=== PATIENT | male | born 1940 | race African-American/Black ===

== ENCOUNTER 2022-02-27 18:50 | Inpatient (IN) | payer BC, MEDICARE ==
[~2022-02-27] VITALS: Ht 172.7 cm; Wt 104.8 kg
[2022-02-27] MEDS ORDERED: ACETAMINOPHEN 325MG TABLET PO STA (19:34)
[2022-02-27] MEDS ORDERED: SODIUM CHLORIDE 0.9% 500 ML IV ONE (19:45)
[2022-02-27] MEDS ORDERED: ALBUTEROL (0.083%) 2.5MG/3ML NEB HHN NR (20:00)
[2022-02-27 20:18] LABS: HEMATOCRIT. 44.3 % (42.0-52.0); HEMOGLOBIN. 14.8 g/dL (14.0-18.0); MEAN CORPUSCULAR HEMOGLOBIN 30.6 pg (28.0-32.0); MEAN CORPUSCULAR VOLUME 91.5 fL (80.0-94.0); MEAN PLATELET VOLUME 8.1 fl (7.4-10.4); PLATELET 164 x1000/uL (130-400); RED BLOOD CELL COUNT 4.84 mill/uL (4.7-6.1); RED CELL DISTRIBUTION WIDTH 13.9 % (11.6-14.6)
[2022-02-27 20:20] LABS: CHLORIDE 102 mEq/L (98-107)
[2022-02-27 20:23] LABS: PROTHROMBIN TIME 11.1 sec (9.6-11.0)
[2022-02-27 20:32] LABS: ETHANOL BLOOD < 10 mg/dL
[2022-02-27] MEDS ORDERED: VANCOMYCIN 1G PREMIX 200 ML IV SCH (20:45)
[2022-02-27] MEDS ORDERED: ASPIRIN 325MG EC TABLET PO ONE (20:45)
[2022-02-27] MEDS ORDERED: PIPERACILLIN/TAZ 3.375G PREMIX 50 ML IV ONE (20:45)
[2022-02-27] MEDS ORDERED: SODIUM CHLORIDE 0.9% 1,000 ML IV ONE (21:00)
[2022-02-27] MEDS ORDERED: ENOXAPARIN 100MG/ML SYR SUBCUT NR (21:00)
[2022-02-27 21:23] LABS: PLATELET ESTIMATE NORMAL
[2022-02-27 22:58] LABS: CLARITY URINE CLOUDY (CLEAR); COLOR URINE DARK YELLOW (YELLOW); KETONES URINE 1+ (NEGATIVE); LEUKOCYTE ESTERASE URINE NEGATIVE (NEGATIVE); NITRITE URINE NEGATIVE (NEGATIVE); OCCULT BLOOD URINE NEGATIVE (NEGATIVE); PROTEIN URINE TRACE (NEGATIVE); SPECIFIC GRAVITY URINE 1.039 (1.005-1.030)
[2022-02-27] MEDS ORDERED: DEXAMETHASONE 10 MG/ML VIAL IV ONE (23:15)
[2022-02-27 23:18] LABS: *AMPHETAMINES SCREEN URINE NEGATIVE (NEGATIVE); *BARBITURATES SCREEN URINE NEGATIVE (NEGATIVE); *BENZODIAZEPINES SCREEN URINE NEGATIVE (NEGATIVE); *COCAINE SCREEN URINE NEGATIVE (NEGATIVE); CANNABINOID URINE SCREEN NEGATIVE (NEGATIVE); METHADONE URINE SCREEN NEGATIVE (NEGATIVE); OPIATES URINE SCREEN NEGATIVE (NEGATIVE); PHENCYCLIDINE URINE SCREEN NEGATIVE (NEGATIVE)
[2022-02-28] VITALS (7 sets, daily range): BP systolic 113–165; BP diastolic 67–93
[2022-02-28] MEDS: PIPERACILLIN/TAZOBACTAM 3.375G in DEXT 5% WATER 50ML IV SCH ×3 (05:39→23:04)
[2022-02-28 06:30] LABS: CHLORIDE 109 mEq/L (98-107)
[2022-02-28 06:38] LABS: HEMATOCRIT. 40.6 % (42.0-52.0); HEMOGLOBIN. 13.7 g/dL (14.0-18.0); LYMPHOCYTES % 10.6 % (20.0-50.0); MEAN PLATELET VOLUME 8.1 fl (7.4-10.4); MONOCYTES % 7.2 % (2.0-8.0); NEUTROPHILS % 82.2 % (40.0-76.0); PLATELET 158 x1000/uL (130-400); RED BLOOD CELL COUNT 4.41 mill/uL (4.7-6.1); RED CELL DISTRIBUTION WIDTH 14.1 % (11.6-14.6)
[2022-02-28] MEDS ORDERED: PIPERACILLIN/TAZOBACTAM 3.375 G in DEXTROSE 5% WATER 50 ML IV SCH (09:00)
[2022-02-28] MEDS ORDERED: ACETAMINOPHEN 325MG TABLET PO PRN (10:15)
[2022-02-28] MEDS ORDERED: IPRATROPIUM/ALBUTEROL 0.5-3(2.5)MG/3ML NEB HHN PRN (10:15)
[2022-02-28] MEDS ORDERED: DIPHENHYDRAMINE 50MG/ML VIAL IV PRN (10:15)
[2022-02-28] MEDS ORDERED: ONDANSETRON HCL 4MG/2ML INJ IV PRN (10:15)
[2022-02-28] MEDS ORDERED: MORPHINE SULFATE 2 MG/ML CPJ (NOT FOR IM USE) IV PRN (10:15)
[2022-02-28] MEDS ORDERED: NALOXONE HCL 0.4MG/ML VIAL IV PRN (10:30)
[2022-02-28] MEDS ORDERED: VANCOMYCIN 1GM PMX (XELLIA) 200 ML IV SCH (15:00)
[2022-02-28] MEDS: VANCOMYCIN 1G PREMIX 200 ML IV SCH (17:11)
[2022-02-28] MEDS: CLONIDINE 0.1MG TABLET PO PRN (17:35)
[2022-03-01] VITALS: BP 157/72
[2022-03-01 04:00] VITALS: BP 141/69
[2022-03-01] MEDS: PIPERACILLIN/TAZOBACTAM 3.375G in DEXT 5% WATER 50ML IV SCH ×3 (06:21→21:23)
[2022-03-01 07:30] LABS: BASOPHILS % 0.2 % (0.0-2.0); EOSINOPHILS % 0.3 % (0.0-5.0); HEMATOCRIT. 40.1 % (42.0-52.0); HEMOGLOBIN. 13.7 g/dL (14.0-18.0); LYMPHOCYTES % 28.3 % (20.0-50.0); MEAN CORPUSCULAR HEMOGLOBIN 31.3 pg (28.0-32.0); MEAN CORPUSCULAR VOLUME 91.8 fL (80.0-94.0); MEAN PLATELET VOLUME 8.6 fl (7.4-10.4); MONOCYTES % 13.2 % (2.0-8.0); PLATELET 147 x1000/uL (130-400); RED BLOOD CELL COUNT 4.37 mill/uL (4.7-6.1); RED CELL DISTRIBUTION WIDTH 13.8 % (11.6-14.6)
[2022-03-01 07:54] LABS: CHLORIDE 105 mEq/L (98-107)
[2022-03-01 08:00] VITALS: BP 173/73
[2022-03-01] MEDS: CLONIDINE 0.1MG TABLET PO PRN (10:01)
[2022-03-01] MEDS ORDERED: ENZA40CA PO (10:56)
[2022-03-01] MEDS ORDERED: AMLO5TAB88 PO (10:56)
[2022-03-01] MEDS ORDERED: HYDR25TA PO (10:56)
[2022-03-01 12:00] VITALS: BP 148/55
[2022-03-01] MEDS: VANCOMYCIN 1G PREMIX 200 ML IV SCH (13:30)
[2022-03-01 16:00] VITALS: BP 154/85
[2022-03-01] MEDS: AMLODIPINE 5MG TABLET PO SCH (16:49)
[2022-03-01] MEDS: HYDROCHLOROTHIAZIDE 25MG TABLET PO SCH (16:50)
[2022-03-01] MEDS ORDERED: ALBUTEROL 6.7GM HFA INHALER ORI PRN (18:30)
[2022-03-01 20:00] VITALS: BP 128/70
[2022-03-02] VITALS: BP 133/73
[2022-03-02 04:00] VITALS: BP 124/59
[2022-03-02 04:11] LABS: CHLORIDE 99 mEq/L (98-107)
[2022-03-02 04:19] LABS: VANCOMYCIN TROUGH 8.4 ug/mL (5.0-10.0)
[2022-03-02] MEDS: VANCOMYCIN 1G PREMIX 200 ML IV SCH (05:15)
[2022-03-02] MEDS: PIPERACILLIN/TAZOBACTAM 3.375G in DEXT 5% WATER 50ML IV SCH ×2 (07:00→14:07)
[2022-03-02 08:00] VITALS: BP 128/58
[2022-03-02] MEDS: AMLODIPINE 5MG TABLET PO SCH (09:27)
[2022-03-02] MEDS: HYDROCHLOROTHIAZIDE 25MG TABLET PO SCH (09:28)
[2022-03-02] MEDS ORDERED: POTASSIUM CHLORIDE 20MEQ TABLET SR PO SCH (09:30)
[2022-03-02 12:00] VITALS: BP 156/74
[2022-03-02] MEDS ORDERED: ASPI-1406 MT (12:16)
[2022-03-02] MEDS ORDERED: VANCOMYCIN 1GM PMX (XELLIA) 200 ML IV SCH (16:00)
[2022-03-02 16:05] VITALS: BP 140/76
[2022-03-03] MEDS ORDERED: ASPIRIN 81MG TABLET PO SCH (09:00)
== END 2022-03-02 17:30 | disposition home or self-care (01) | DRG 871 ==
LOC: ER 18:50 → EDBD 18:50 → MICUSO 22:33 → EDBEDREQTM 23:11 → EDBEDREQSVC 23:11 → EDBEDREQ 23:11 → 7WST 02-28 03:26 → 7EST 02-28 13:15
PROVIDERS: ADMIT Internal Medicine; ATTEND Internal Medicine
DX: A41.89 Other specified sepsis (principal); I21.4 Non-ST elevation (NSTEMI) myocardial infarction; U07.1 COVID-19; E44.1 Mild protein-calorie malnutrition; I10 Essential (primary) hypertension; R65.20 Severe sepsis without septic shock; Z96.649 Presence of unspecified artificial hip joint; M19.90 Unspecified osteoarthritis, unspecified site; C61 Malignant neoplasm of prostate; Z92.21 Personal history of antineoplastic chemotherapy; Z82.49 Family history of ischemic heart disease and other diseases of the circulatory system; Z68.35 Body mass index [BMI] 35.0-35.9, adult
CPT/HCPCS: 36415; 71045; 80048; 80053; 80202; 80305; 80320; 81003; 83605; 83880; 84145; 84484; 85025; 86850; 86900; 87426; 87804; 93005; 93970; 94640; 94664; 99291; C9803; J1100; J1650; J2543; J3370; J7040; J7060; G0480